=== PATIENT | female | born 1970 ===

== ENCOUNTER 2022-09-30 21:59 | Observation (INO) | payer OTHER ==
[2022-09-30] MEDS ORDERED: Albuterol/Ipratropium 3.0-0.5 MG/3 ML Neb Soln NEB ONE (22:08)
[2022-09-30] MEDS ORDERED: Dexamethasone 4 MG/ML SDV IM ONE (22:09)
[2022-09-30] MEDS ORDERED: Sodium Chloride 0.9% 10 ML Syringe FLUSH PRN (22:10)
[2022-09-30] MEDS ORDERED: Dexamethasone 4 MG/ML SDV IVPUSH ONE (22:45)
[2022-10-01] MEDS ORDERED: Albuterol/Ipratropium 3.0-0.5 MG/3 ML Neb Soln NEB ONE (01:36)
[2022-10-01 01:51] LABS: BASOPHILS PERCENT AUTO 0.3 % (0.0-1.0); EOSINOPHILS PERCENT AUTO 8.9 % (1.0-3.0); HEMATOCRIT 42.7 % (37.0-47.0); HEMOGLOBIN 13.8 g/dL (12.0-16.0); LYMPHOCYTES PERCENT AUTO 18.8 % (20.5-50.1); MEAN CORPUSCULAR HEMOGLOBIN 30.4 pg (27.0-34.0); MEAN CORPUSCULAR HGB CONC 32.3 g/dL (33.0-35.0); MEAN CORPUSCULAR VOLUME 94.1 fL (80-100); MONOCYTES PERCENT AUTO 6.2 % (2-8); NEUTROPHILS PERCENT AUTO 65.8 % (42.2-75.2); PLATELET COUNT,PLT 338 10^3/uL (150-450); RED BLOOD CELL COUNT 4.54 10^6/uL (4.2-5.4); WHITE BLOOD CELL COUNT,WBC 15.3 10^3/uL (5.0-10.0)
[2022-10-01] MEDS ORDERED: Iopamidol 755 Mg/ML 100 ML Bottle IVPUSH ONE (02:00)
[2022-10-01 02:02] LABS: ALBUMIN 3.9 g/dL (3.4-5.0); ANION GAP 13.8 mEq/L (7-13); BILIRUBIN TOTAL 0.1 mg/dL (0.2-1.0); CALCIUM 8.9 mg/dL (8.5-10.1); CREATININE 0.73 mg/dL (0.55-1.02); EST CRCL DRUG DOSING (CG) 76.96 mL/min; POTASSIUM,K 3.8 mmol/L (3.5-5.1); PROTEIN TOTAL,TP 7.9 g/dL (6.4-8.2)
[2022-10-01] MEDS ORDERED: Levofloxacin/Dextrose 5%-Water 750 MG in Premix Bag 1 BAG IV ONE (02:09)
[2022-10-01] MEDS ORDERED: Iopamidol 612 MG/ML 100 ML Bottle IVPUSH ONE (02:29)
[2022-10-01 03:06] LABS: O2 DELIVERY DEVICE ROOM AIR
[2022-10-01 03:08] LABS: BASE EXCESS ARTERIAL -1 mmol/L ((-2)-(+3)); BICARBONATE,ARTERIAL 22.1 mmol/L (22-26); O2 SATURATION ARTERIAL 92 % (95-100); PCO2 ARTERIAL 35 mmHg (35-45); PH,ARTERIAL 7.42 (7.35-7.45); PO2 ARTERIAL 75 mmHg (70-100)
[2022-10-01] MEDS ORDERED: Acetaminophen 325 MG Tab PO PRN (04:10)
[2022-10-01] MEDS ORDERED: Albuterol/Ipratropium 3.0-0.5 MG/3 ML Neb Soln NEB PRN (04:14)
[2022-10-01] MEDS ORDERED: Sodium Chloride 0.9% 10 ML Syringe FLUSH PRN (04:14)
[2022-10-01] MEDS ORDERED: Nitroglycerin 0.4 MG Tab.SL SL PRN (04:15)
[2022-10-01] MEDS ORDERED: Pantoprazole 40 MG Tab.CR PO SCH (06:00)
[2022-10-01] MEDS ORDERED: Oseltamivir 75 MG Cap PO SCH (09:00)
[2022-10-01] MEDS ORDERED: Aspirin 81 MG Tab.EC PO SCH (09:00)
[2022-10-01] MEDS ORDERED: Diltiazem 240 MG Cap.ER PO SCH (09:00)
[2022-10-01] MEDS ORDERED: Enoxaparin 40 MG/0.4 ML Syringe SUBCUT SCH (09:00)
[2022-10-02] MEDS ORDERED: Levofloxacin/Dextrose 5%-Water 750 MG in Premix Bag 1 BAG IV SCH (04:30)
[2022-10-02] MEDS ORDERED: predniSONE 20 MG Tab PO SCH (08:00)
== END 2022-10-01 12:01 | disposition home or self-care (01) ==
LOC: DL.ED 21:59 → UNDOADMOB 10-01 03:36 → DL.MS 10-01 03:36 → UNDODISOB 10-01 12:01
PROVIDERS: ADMIT Emergency Medicine; ATTEND Emergency Medicine
DX: J18.9 Pneumonia, unspecified organism (principal); J10.1 Influenza due to other identified influenza virus with other respiratory manifestations; J45.21 Mild intermittent asthma with (acute) exacerbation; I10 Essential (primary) hypertension; Z20.822 Contact with and (suspected) exposure to COVID-19; Z79.82 Long term (current) use of aspirin; Z88.0 Allergy status to penicillin; Z88.8 Allergy status to other drugs, medicaments and biological substances; Z79.899 Other long term (current) drug therapy; Z90.710 Acquired absence of both cervix and uterus; Z90.89 Acquired absence of other organs; Z87.891 Personal history of nicotine dependence
CPT/HCPCS: 36415; 36600; 71045; 71260; 80053; 82803; 83605; 85025; 87635; 87804; 94010; 94640; 94667; 96372; 96374; 96375; 99284; 99285; A9270; G0378; J1100; J1650; J1956; Q9967; J3490; J7620-GY; U0002